=== PATIENT | female | born 1980 | race Caucasian/White ===

== ENCOUNTER 2021-04-16 12:13 | Emergency (ER) | payer MEDICAID ==
[~2021-04-16] VITALS: Ht 170.2 cm; Wt 56.2 kg
[2021-04-16 12:20] VITALS: BP_SYST 126
[2021-04-16 12:59] LABS: BASOPHILS # (AUTO) 0.1 K/uL (0.0-0.2); BASOPHILS % (AUTO) 0.8 % (0.0-2.0); EOSINOPHILS # (AUTO) 0.1 K/uL (0.0-0.4); EOSINOPHILS % (AUTO) 0.8 % (0.0-4.0); HEMOGLOBIN 13.7 g/dL (12.0-16.0); LYMPHOCYTES # (AUTO) 1.9 K/uL (1.0-5.5); LYMPHOCYTES % (AUTO) 18.1 % (20.5-51.5); MEAN CORPUSCULAR HEMOGLOBIN 32 pg (27-31); MEAN CORPUSCULAR HGB CONC 34 % (32-36); MEAN CORPUSCULAR VOLUME 94 fL (79.0-98.0); MONOCYTES # (AUTO) 0.7 K/uL (0.0-1.0); MONOCYTES % (AUTO) 6.8 % (1.7-9.3); NEUTROPHILS # (AUTO) 7.6 K/uL (1.8-7.7); NEUTROPHILS % (AUTO) 73.5 % (40.0-70.0); PLATELET COUNT (AUTO) 215 K/uL (130-430); RED BLOOD CELL COUNT(AUTO) 4.26 MIL/uL (4.2-6.2); RED CELL DISTRIBUTION WIDTH 14.1 % (9.0-15.0); WHITE BLOOD COUNT (AUTO) 10.3 K/uL (4.8-10.8)
[2021-04-16 13:07] LABS: BILIRUBIN,URINE NEGATIVE (NEGATIVE); BLOOD, URINE 2+ (NEGATIVE); CLARITY/URINE CLEAR (CLEAR); COLOR,URINE YELLOW (YELLOW); GLUCOSE,URINE NEGATIVE (NEGATIVE); KETONES,URINE NEGATIVE (NEGATIVE); LEUKOCYTE ESTERASE ,URINE NEGATIVE (NEGATIVE); NITRITE, URINE NEGATIVE (NEGATIVE); PROTEIN URINE NEGATIVE (NEGATIVE); UROBILINOGEN,URINE 0.2 (0.2-1.0)
[2021-04-16 13:12] LABS: CREATININE 0.63 mg/dL (0.55-1.30)
[2021-04-16 13:14] LABS: INR 0.9 (0.8-1.2); PROTHROMBIN TIME 10.1 SECS (9.5-12.5)
[2021-04-16 13:34] LABS: BACTERIA,URINE FEW /HPF (None Seen); MUCUS,URINE 1+ /LPF (None Seen); RBC,URINE 0-3 /HPF (0-3); WBC,URINE 0-3 /HPF (0-3)
[2021-04-16 13:38] LABS: ALBUMIN 3.9 g/dL (3.4-4.8); TOTAL BILIRUBIN 0.5 mg/dL (0.0-1.0)
[2021-04-16 15:05] VITALS: BP_SYST 119
== END 2021-04-16 15:06 | disposition home or self-care (01) ==
LOC: SED 12:13
DX: O20.9 Hemorrhage in early pregnancy, unspecified (principal); Z3A.10 10 weeks gestation of pregnancy
CPT/HCPCS: 36415; 76830-TC; 76857; 80053; 81000; 81025; 84702; 85025; 85610-TC; 86900; 86901; 99284

== ENCOUNTER 2021-04-18 13:07 | Emergency (ER) | payer MEDICAID ==
[~2021-04-18] VITALS: Ht 170.2 cm; Wt 55.8 kg
[2021-04-18 13:22] VITALS: BP_SYST 128
--- NOTE | 2021-04-18 13:25 | NUR ---
Patient to ER bed 8 to gown for evaluation. Side rails up. Report given to Autumn CHUA.
--- NOTE | 2021-04-18 13:50 | NUR ---
Pt AAO and ambulatory reporting that she came here for follow up s/p spontaneous AB. Pt was seen here prior approximately 2 days ago. Pt wanted to be evaluated for possible retained POC. Pt reports mild bleeding and cramping rating it 4/10 on pain scale. Pt here to have quant and hemoglobin checked. Pt v/s stable.
--- NOTE | 2021-04-18 14:18 | NUR ---
Dr. Guajardo at bedside to assess.
--- NOTE | 2021-04-18 15:25 | NUR ---
Dr. Talley at bedside to assess.
--- NOTE | 2021-04-18 15:40 | NUR ---
LAB AT BEDSIDE FOR BLOOD DRAW.
[2021-04-18 15:54] LABS: HEMOGLOBIN 11.7 g/dL (12.0-16.0); MEAN CORPUSCULAR VOLUME 94 fL (79.0-98.0); RED CELL DISTRIBUTION WIDTH 14.1 % (9.0-15.0)
[2021-04-18 16:07] LABS: BASOPHILS # (AUTO) 0.1 K/uL (0.0-0.2); BASOPHILS % (AUTO) 0.8 % (0.0-2.0); EOSINOPHILS # (AUTO) 0.1 K/uL (0.0-0.4); EOSINOPHILS % (AUTO) 1.4 % (0.0-4.0); HEMATOCRIT 34.6 % (36-48); LYMPHOCYTES # (AUTO) 2.3 K/uL (1.0-5.5); LYMPHOCYTES % (AUTO) 34.6 % (20.5-51.5); MEAN CORPUSCULAR HEMOGLOBIN 32 pg (27-31); MEAN CORPUSCULAR HGB CONC 34 % (32-36); MONOCYTES # (AUTO) 0.4 K/uL (0.0-1.0); MONOCYTES % (AUTO) 5.5 % (1.7-9.3); NEUTROPHILS # (AUTO) 3.9 K/uL (1.8-7.7); NEUTROPHILS % (AUTO) 57.7 % (40.0-70.0); PLATELET COUNT (AUTO) 225 K/uL (130-430); RED BLOOD CELL COUNT(AUTO) 3.68 MIL/uL (4.2-6.2); WHITE BLOOD COUNT (AUTO) 6.8 K/uL (4.8-10.8)
[2021-04-18 16:40] VITALS: BP_SYST 128
--- NOTE | 2021-04-18 16:40 | NUR ---
Patient given written and verbal discharge instructions and verbalizes understanding. Dr. Gerri PENA MD discussed with patient the results and treatment provided. Patient in stable condition. ID arm band removed. Patient educated on pain management and to follow up with PMD. Pain Scale 0/10. Opportunity for questions provided and answered.
== END 2021-04-18 16:40 | disposition home or self-care (01) ==
LOC: SED 13:07
DX: O03.9 Complete or unspecified spontaneous abortion without complication (principal)
CPT/HCPCS: 36415; 76856-TC; 84702; 85025; 99284